=== PATIENT | female | born 1950 | race Caucasian/White ===

== ENCOUNTER 2021-11-16 19:28 | Observation (INO) | payer OTHER ==
[~2021-11-16] VITALS: Ht 170.2 cm; Wt 61.0 kg
[2021-11-16 21:11] LABS: HEMATOCRIT 45.3 % (36.0-47.0); HEMOGLOBIN 15.2 g/dl (12.0-15.5); MEAN CORPUSCULAR HEMOGLOBIN 31.5 pg (27.0-33.0); MEAN CORPUSCULAR HGB CONC 33.6 g/dl (32.0-36.5); PLATELET COUNT, AUTOMATED 256 10^3/uL (150-450); RED BLOOD COUNT 4.82 10^6/uL (4.00-5.40); WHITE BLOOD COUNT 10.1 10^3/uL (4.0-10.0)
[2021-11-16 21:18] LABS: ALBUMIN 4.3 GM/DL (3.2-5.2); BILIRUBIN,TOTAL 0.5 MG/DL (0.2-1.0); CALCIUM LEVEL 9.9 MG/DL (8.8-10.2); CREATININE FOR GFR 0.99 MG/DL (0.55-1.30); GLOMERULAR FILTRATION RATE 58.5 (>39); POTASSIUM SERUM 4.2 MEQ/L (3.5-5.1); TOTAL PROTEIN 7.4 GM/DL (6.4-8.2)
[2021-11-16 21:22] LABS: INR 0.9; PROTHROMBIN TIME 12.5 SECONDS (12.7-14.5)
[2021-11-16 21:23] LABS: PARTIAL THROMBOPLASTIN TIME 28.8 SECONDS (25.9-37.0)
[2021-11-16] MEDS: METOPROLOL 5 MG/5 ML VIAL IV SCH ×3 (21:40→21:50)
[2021-11-16] MEDS ORDERED: ISOVUE-370 76% 100ML VIAL As Ordered ONE (21:41)
[2021-11-16] MEDS ORDERED: hydrALAZINE 20MG/ML 1ML VIAL (J0360 PER 20MG) IV STA (21:44)
[2021-11-16 22:00] LABS: APPEARANCE, URINE CLEAR (CLEAR); BACTERIA, URINE AUTO NEGATIVE (NEGATIVE); BILIRUBIN, URINE AUTO NEGATIVE (NEGATIVE); BLOOD, URINE BLOOD NEGATIVE (NEGATIVE); COLOR, URINE COLORLESS (YELLOW); GLUCOSE, URINE (UA) AUTO NEGATIVE (NEGATIVE); KETONE, URINE AUTO NEGATIVE (NEGATIVE); LEUKOCYTE ESTERASE, URINE AUTO NEGATIVE (NEGATIVE); NITRITE, URINE AUTO NEGATIVE (NEGATIVE); PROTEIN, URINE AUTO NEGATIVE (NEGATIVE); RBC, URINE AUTO 0 /HPF (0-3); SPECIFIC GRAVITY URINE AUTO 1.003 (1.002-1.035); SQUAMOUS EPITHELIAL CELL UR AU 0 /HPF (0-6); UROBILINOGEN, URINE AUTO 0.2 mg/dL (0.0-2.0); WBC, URINE AUTO 1 /HPF (0-3)
[2021-11-16] MEDS ORDERED: atenoloL 50 MG TAB PO ONE (22:30)
[2021-11-17] MEDS ORDERED: ACETAMINOPHEN TAB 650MG DOSE (2X325MG) PO PRN (01:40)
[2021-11-17] MEDS ORDERED: HOME MED LIST COMPLETE! XX SCH (01:50)
[2021-11-17 02:24] VITALS: BP 152/90
[2021-11-17] MEDS ORDERED: diltiaZEM 125 MG in NS 100 ML IV SCH (03:00)
[2021-11-17] MEDS ORDERED: NS 1,000 ML IV SCH (03:20)
[2021-11-17 04:00] VITALS: BP 160/100
[2021-11-17 06:52] LABS: BLOOD UREA NITROGEN 11 MG/DL (7-18); CALCIUM LEVEL 9.1 MG/DL (8.8-10.2); CARBON DIOXIDE LEVEL 28 MEQ/L (21-32); CHLORIDE LEVEL 101 MEQ/L (98-107); CREATININE FOR GFR 0.85 MG/DL (0.55-1.30); GLOMERULAR FILTRATION RATE > 60.0 (>39); GLUCOSE, FASTING 90 MG/DL (70-100); MAGNESIUM LEVEL 2.1 MG/DL (1.8-2.4); POTASSIUM SERUM 3.7 MEQ/L (3.5-5.1); SODIUM LEVEL 136 MEQ/L (136-145)
[2021-11-17 07:55] LABS: THYROXINE (T4) 8.9 UG/DL (4.5-12.0)
[2021-11-17 08:00] VITALS: BP 149/68
[2021-11-17 08:02] LABS: BASO % 0.5 % (0.0-1.0); EOS % 0.5 % (0.0-3.0); HEMATOCRIT 41.3 % (36.0-47.0); HEMOGLOBIN 13.9 g/dl (12.0-15.5); LYMPH # 1.1 10^3/uL (1.5-5.0); LYMPH % 12.7 % (24.0-44.0); MEAN CORPUSCULAR HEMOGLOBIN 31.3 pg (27.0-33.0); MEAN CORPUSCULAR HGB CONC 33.7 g/dl (32.0-36.5); MONO # 0.9 10^3/uL (0.0-0.8); MONO % 10.9 % (2.0-8.0); NEUTROPHILS # 6.3 10^3/uL (1.5-8.5); NEUTROPHILS % 75.2 % (36.0-66.0); PLATELET COUNT, AUTOMATED 241 10^3/uL (150-450); RED BLOOD COUNT 4.44 10^6/uL (4.00-5.40); WHITE BLOOD COUNT 8.4 10^3/uL (4.0-10.0)
[2021-11-17] MEDS: APIXABAN 5 MG TAB (ELIQUIS) PO SCH ×2 (08:38→19:39)
[2021-11-17 16:00] VITALS: BP 111/67
[2021-11-17 18:00] VITALS: BP 139/80
[2021-11-17] MEDS ORDERED: METOPROLOL TART 25 MG TABLET PO SCH (18:00)
[2021-11-17] MEDS ORDERED: BLOOMIS12 XX (18:23)
[2021-11-17] MEDS ORDERED: ATEN50TA2 PO ×2 (18:23→19:24)
[2021-11-17] MEDS ORDERED: ELIQ5TAB PO ×2 (18:23→19:24)
== END 2021-11-17 20:03 | disposition home or self-care (01) ==
LOC: M ED 19:28 → M ED INP 19:29 → M PCU 11-17 02:08 → ENRESERV 11-17 02:09 → M PCU 11-17 02:24
PROVIDERS: ADMIT Internal Medicine; ATTEND Internal Medicine
DX: R41.0 Disorientation, unspecified (principal); I67.4 Hypertensive encephalopathy; I48.91 Unspecified atrial fibrillation; I16.0 Hypertensive urgency; Z79.01 Long term (current) use of anticoagulants; Z79.899 Other long term (current) drug therapy
CPT/HCPCS: 36415; 70450; 70496; 70498; 70551; 80048; 80053; 81001; 83735; 84436; 84443; 84479; 85025; 85027; 85610; 85730; 87486; 87581; 87633; 87798; 93005; 93306; 96361; 96374; 97116; 97161; 97165; 99285; G0378; J0360; Q9967